=== PATIENT | male | born 1985 | race Hispanic/Latino ===

== ENCOUNTER 2018-12-10 18:15 | Emergency (ER) | payer BC, SELFPAY ==
--- NOTE | 2018-12-10 18:52 | RAD ---
RIGHT ANKLE THREE VIEW 12/10/18 HISTORY: Tripped down stairs. Injury. Fall. COMPARISON: None. FINDINGS: No acute fracture or malalignment. Ankle mortise is congruent. IMPRESSION: No acute fracture or malalignment. POS: [facility]
== END 2018-12-10 18:50 | disposition home or self-care (01) ==
LOC: SCSER 18:15
DX: S93.401A Sprain of unspecified ligament of right ankle, initial encounter (principal); W11.XXXA Fall on and from ladder, initial encounter; Y92.89 Other specified places as the place of occurrence of the external cause; Y99.0 Civilian activity done for income or pay